=== PATIENT | male | born 1955 | race Caucasian/White ===

== ENCOUNTER 2016-10-30 23:58 | Inpatient (IN) | payer OTHER ==
[~2016-10-30] VITALS: Ht 175.3 cm; Wt 167.4 kg
[~2016-10-30 23:58] MED LIST: ALLOPURINOL100 MG PO; ALLOPURINOL300 MG PO; AMBIEN10 MG PO; ATARAX10 MG PO; BICITRA SOLUTI473 ML PO; CALCITRIOL0.25 MC1 PO; CALCITRIOL0.5 MCG PO; CALCIUM ACETAT667 MG PO; CARDIZEM CD,CA240 M1 PO; CARDIZEM CD240 MG PO; CARDURA8 MG PO; CELEXA20 MG PO; CELEXA40 MG PO; CITALOPRAM HBR20 MG PO; COUMADIN,JANTOV10 MG PO; COUMADIN,JANTOVE5 MG PO; COUMADIN5 MG PO; COUMADIN7.5 MG PO; COZAAR25 MG PO; CYTRA-2 ORAL S473 ML PO; Cardizem CD,Cartia X PO; Coumadin,Jantoven PO; Cozaar PO; DIGOX125 MCG PO; DIGOXIN125 MCG PO; DILACOR XR240 MG PO; DILAUDID4 MG PO; DILTIAZEM 24HR240 MG PO; DIOVAN80 MG PO; DOXAZOSIN MESYLA4 MG PO; DRISDOL50000 UNIT PO; DUONEB 2.5-0.5 M3 ML AEROSOL; ERGOCALCIF50000 UNIT PO; FERREX 28 TABL1 EACH PO; FUROSEMIDE40 MG PO; FUROSEMIDE80 MG PO; GABAPENTIN300 MG PO; GENTLE IRON 281 EACH PO; HEMATOGEN SOFT1 EACH PO; HUMULIN NP100 UNIT/1 SC; IRON GLYCINATE PO; KLOR-CON M1515 MEQ PO; Keflex PO; LANOXIN,DIGIT0.25 MG PO; LASIX40 MG PO; METHOCARBAMOL750 MG PO; MIRALAX17 GM PO; NOVOLIN N100 UNIT/1 SQ; NOVOLIN,HU100 UNITS/ SC; NOVOLIN,HU100 UNITS/ SQ; NovoLIN,Humulin 70/3 SC; PANTOPRAZOLE SO40 MG PO; POLYETHYLENE GL17 GM PO; PROCRIT10000 UNI1 IV; ROBAXIN750 MG PO; ROCALTROL0.25 MCG PO; Rocaltrol PO; SENNA8.6 MG PO; SENOKOT,SENN1 TABLET PO; SENSIPAR30 MG PO; SERTRALINE HCL100 MG PO; Senokot S,Pericolace PO; TYLENOL REGULA325 MG PO; Tylenol Regular Stre PO; VITAMIN D250000 UNIT PO; VITAMIN D50000 UNI1 PO; Vitamin D, Drisdol PO; WARFARIN SODIU2.5 MG PO; WARFARIN SODIUM5 MG PO; ZOLOFT50 M1 PO; ZOLPIDEM TARTRA10 MG PO; ZYLOPRIM150 MG PO; Zoloft PO; [UNRECOGNIZED DRUG - OTHER] PO
[2016-10-31 00:46] LABS: MCH 28.5 PG (29.0-34.0); MCHC 31.1 G/DL (30.0-36.0); MCV 91.6 FL (86-99); MEAN PLAT.VOLUME 9.3 uM^3 (9.0-12.4); PLATELET COUNT 223 K/uL (156-360); RBC DIS.WIDTH-CV 17.1 % (11.8-14.6); RBC DIS.WIDTH-SD 55.3 % (39-53); RED BLOOD COUNT 4.04 M/uL (4.00-5.50); WHITE BLOOD COUNT 15.5 K/uL (4.1-10.2)
[2016-10-31 00:47] LABS: EOSINOPHIL (%) 1.7 % (0-5); EOSINOPHIL COUNT 0.3 K/uL (0-0.3); IMMATURE GRANULOCYTE (%) 0.3 % (0.0-0.7); IMMATURE GRANULOCYTE COUNT 0.5 K/uL; LYMPHOCYTE COUNT 0.7 K/uL (1.0-2.8); MONOCYTE (%) 4.9 % (3-12); MONOCYTE COUNT 0.8 K/uL (0-0.8); NEUTROPHIL (%) 88.4 % (45-76); NEUTROPHIL COUNT 13.7 K/uL (1.8-6.4)
[2016-10-31 00:55] LABS: CHLORIDE 100 mEq/L (99-109); POTASSIUM 4.9 mEq/L (3.7-5.4); SODIUM 139 mEq/L (136-147)
[2016-10-31 00:58] LABS: GLUCOSE 104 mg/dL (70-99)
[2016-10-31 00:59] LABS: ANION GAP 14 MEQ/L (2-14)
[2016-10-31 01:00] LABS: TOTAL BILIRUBIN 0.8 mg/dL (0.0-1.0)
[2016-10-31 01:01] LABS: ALKALINE PHOSPHATASE 111 IU/L (3-129); GFR ESTIMATE (CALCULATED) 8 mL/min/
[2016-10-31 01:02] LABS: UREA NITROGEN (BUN) 83 mg/dL (9-23)
[2016-10-31 01:05] LABS: LIPASE 29 U/L (1.0-51.0)
[2016-10-31 01:08] LABS: TROP-I INTERPRETATION NEGATIVE; TROPONIN-I 0.02 ng/mL (0.0-0.30)
[2016-10-31 02:19] LABS: INTER. NORMALIZED RATIO 2.5; PROTHROMBIN TIME 26.1 (9.2-11.2); PTT 40.6 (25-32)
[2016-10-31 02:27] LABS: DIGOXIN 1.2 ng/mL (0.8-2.0)
[2016-10-31 05:59] VITALS: BP 96/42
[2016-10-31 06:11] VITALS: BP 96/42
[2016-10-31 07:25] VITALS: BP 94/54
[2016-10-31 07:35] LABS: METH RESISTANT S AUREUS PCR NEGATIVE (NEGATIVE); PROBE CHECK PASS; SPECIMEN PROCESSING CONTROL PASS
[2016-10-31 07:51] LABS: POINT-OF-CARE METER ID UU13113781; POINT-OF-CARE USER ID ENVKC36
[2016-10-31 14:23] LABS: POINT-OF-CARE METER ID UU13113781
[2016-10-31 15:30] VITALS: BP 102/50
[2016-10-31 16:34] LABS: POINT-OF-CARE USER ID ENVKC36
[2016-10-31 20:00] VITALS: BP 102/64
[2016-11-01 00:15] VITALS: BP 107/59
[2016-11-01 04:48] VITALS: BP 124/48
[2016-11-01 08:02] VITALS: BP 98/48
[2016-11-01 09:27] LABS: INTER. NORMALIZED RATIO 2.5; PROTHROMBIN TIME 26.7 (9.2-11.2)
[2016-11-01 09:29] LABS: ANION GAP 10 MEQ/L (2-14); CHLORIDE 103 MEQ/L (99-109); POTASSIUM 4.3 MEQ/L (3.7-5.4); SAMPLE HEMOLYSIS CHECK 0; SAMPLE ICTERIC CHECK 0; SAMPLE LIPEMIA CHECK 0; SODIUM 140 MEQ/L (136-147)
[2016-11-01 09:35] LABS: EOSINOPHIL (%) 5.1 % (0-5); EOSINOPHIL COUNT 0.3 K/uL (0-0.3); GFR ESTIMATE (CALCULATED) 12 mL/min/; GLUCOSE 150 mg/dL (70-99); IMMATURE GRANULOCYTE (%) 0.2 % (0.0-0.7); LYMPHOCYTE COUNT 0.7 K/uL (1.0-2.8); MCH 28.5 PG (29.0-34.0); MCV 91.8 FL (86-99); MONOCYTE (%) 7.8 % (3-12); MONOCYTE COUNT 0.5 K/uL (0-0.8); NEUTROPHIL COUNT 4.4 K/uL (1.8-6.4); RBC DIS.WIDTH-CV 17.4 % (11.8-14.6); RBC DIS.WIDTH-SD 58.7 % (39-53); UREA NITROGEN (BUN) 56 mg/dL (9-23)
[2016-11-01 09:36] LABS: RED BLOOD COUNT 3.16 M/uL (4.00-5.50); WHITE BLOOD COUNT 5.9 K/uL (4.1-10.2)
[2016-11-01 10:13] LABS: MEAN PLAT.VOLUME 9.8 uM^3 (9.0-12.4); PLAT.SUFFICIENCY DECREASED; USER ID TLW
[2016-11-01 10:18] LABS: PLATELET COUNT 135 K/uL (156-360)
[2016-11-01 16:15] LABS: POINT-OF-CARE METER ID UU13113698
[2016-11-01 17:39] VITALS: BP 108/51
[2016-11-01 19:30] VITALS: BP 118/55
[2016-11-01 23:15] VITALS: BP 111/56
[2016-11-02 03:10] VITALS: BP 99/51
[2016-11-02 07:12] LABS: INTER. NORMALIZED RATIO 2.2; PROTHROMBIN TIME 23.4 (9.2-11.2)
[2016-11-02 07:44] VITALS: BP 113/57
[2016-11-02 08:50] LABS: ANION GAP 10 MEQ/L (2-14); CHLORIDE 102 MEQ/L (99-109); POTASSIUM 4.5 MEQ/L (3.7-5.4); SAMPLE HEMOLYSIS CHECK 0; SAMPLE ICTERIC CHECK 0; SAMPLE LIPEMIA CHECK 0; SODIUM 139 MEQ/L (136-147)
[2016-11-02 08:51] LABS: GLUCOSE 33 mg/dL (70-99)
[2016-11-02 08:57] LABS: GFR ESTIMATE (CALCULATED) 14 mL/min/; UREA NITROGEN (BUN) 51 mg/dL (9-23)
[2016-11-02 09:02] LABS: GLUCOSE 96 mg/dL (70-99)
[2016-11-02 09:05] LABS: HEMATOCRIT 30.7 % (38.0-50.0); MCH 28.2 PG (29.0-34.0); MCHC 30.9 G/DL (30.0-36.0); MCV 91.1 FL (86-99); MEAN PLAT.VOLUME 9.6 uM^3 (9.0-12.4); PLATELET COUNT 164 K/uL (156-360); RBC DIS.WIDTH-CV 16.7 % (11.8-14.6); RBC DIS.WIDTH-SD 53.9 % (39-53); RED BLOOD COUNT 3.37 M/uL (4.00-5.50); WHITE BLOOD COUNT 6.9 K/uL (4.1-10.2)
[2016-11-02 09:08] LABS: BASOPHIL COUNT 0.1 K/uL (0-0.1); EOSINOPHIL (%) 7.3 % (0-5); EOSINOPHIL COUNT 0.5 K/uL (0-0.3); IMMATURE GRANULOCYTE (%) 0.1 % (0.0-0.7); IMMATURE GRANULOCYTE COUNT 0.1 K/uL; LYMPHOCYTE COUNT 0.9 K/uL (1.0-2.8); MONOCYTE COUNT 0.6 K/uL (0-0.8); NEUTROPHIL (%) 69.7 % (45-76); NEUTROPHIL COUNT 4.8 K/uL (1.8-6.4)
[2016-11-02 09:50] LABS: POINT-OF-CARE METER ID UU13113681
[2016-11-02 12:26] LABS: POINT-OF-CARE METER ID UU13113781
[2016-11-02 12:35] VITALS: BP 114/55
[2016-11-02 16:07] VITALS: BP 106/49
[2016-11-02 16:34] LABS: POINT-OF-CARE METER ID UU13113781
[2016-11-02 19:00] VITALS: BP 103/58
[2016-11-02 21:26] LABS: POINT-OF-CARE METER ID UU13113781
[2016-11-02 23:30] VITALS: BP 109/45
[2016-11-03 03:30] VITALS: BP 130/53
[2016-11-03 07:02] LABS: INTER. NORMALIZED RATIO 2.2; PROTHROMBIN TIME 23.1 (9.2-11.2)
[2016-11-03 08:03] LABS: POINT-OF-CARE METER ID UU14174216; POINT-OF-CARE USER ID ENVKC36
[2016-11-03] MEDS ORDERED: LEVAQUIN500 MG PO ×2 (09:06→09:20)
[2016-11-03 11:57] VITALS: BP 112/53
[2016-11-03 11:58] LABS: POINT-OF-CARE METER ID UU14174216; POINT-OF-CARE USER ID ENVKC36
== END 2016-11-03 16:18 | disposition home or self-care (01) | DRG 189 ==
LOC: EME 23:58 → 4EAST 10-31 04:49 → EDOF 10-31 04:49 → 4EAST 10-31 05:49
PROVIDERS: Emergency Medicine; Internal Medicine; Internal Medicine Nephrology
PROC: 5A1D60Z (ICD-10-PCS; principal; 2016-10-31)
DX: J81.0 Acute pulmonary edema (principal); N18.6 End stage renal disease; J44.1 Chronic obstructive pulmonary disease with (acute) exacerbation; I12.0 Hypertensive chronic kidney disease with stage 5 chronic kidney disease or end stage renal disease; L03.116 Cellulitis of left lower limb; L03.115 Cellulitis of right lower limb; Z68.43 Body mass index [BMI] 50.0-59.9, adult; L97.911 Non-pressure chronic ulcer of unspecified part of right lower leg limited to breakdown of skin; N25.81 Secondary hyperparathyroidism of renal origin; M19.90 Unspecified osteoarthritis, unspecified site; I48.2 Chronic atrial fibrillation; E66.01 Morbid (severe) obesity due to excess calories; I87.2 Venous insufficiency (chronic) (peripheral); D63.1 Anemia in chronic kidney disease; G47.33 Obstructive sleep apnea (adult) (pediatric); E11.649 Type 2 diabetes mellitus with hypoglycemia without coma; E11.21 Type 2 diabetes mellitus with diabetic nephropathy; I87.8 Other specified disorders of veins; M25.561 Pain in right knee; W19.XXXA Unspecified fall, initial encounter; M54.5 Low back pain; E11.22 Type 2 diabetes mellitus with diabetic chronic kidney disease; F32.9 Major depressive disorder, single episode, unspecified; G89.29 Other chronic pain; I50.9 Heart failure, unspecified; Z79.4 Long term (current) use of insulin; Z87.891 Personal history of nicotine dependence; Z86.73 Personal history of transient ischemic attack (TIA), and cerebral infarction without residual deficits; Z88.6 Allergy status to analgesic agent; Z88.0 Allergy status to penicillin; Z88.8 Allergy status to other drugs, medicaments and biological substances; Z91.15 Patient's noncompliance with renal dialysis; Y99.9 Unspecified external cause status
CPT/HCPCS: 71010; 71020; 72131; 73564; 80053; 80069; 80162; 81003; 82948; 83605; 83690; 83880; 84484; 84999; 85025; 85610; 85730; 87040; 87641; 93005; 94640; 94640 76; 94660; 94760; 94799; 99202; 99281; 99285; J1270; J1644; J1815; J1940; J1956

== ENCOUNTER 2017-01-02 21:52 | Emergency (ER) | payer OTHER ==
[~2017-01-02] VITALS: Ht 175.3 cm; Wt 169.7 kg
[~2017-01-02 21:52] MED LIST changes: +LEVAQUIN500 MG PO
[2017-01-02 23:58] LABS: BASOPHIL COUNT 0.1 K/uL (0-0.1); EOSINOPHIL COUNT 0.2 K/uL (0-0.3); HEMATOCRIT 33.1 % (38.0-50.0); IMMATURE GRANULOCYTE (%) 0.5 % (0.0-0.7); IMMATURE GRANULOCYTE COUNT 0.1 K/uL; INSTRUMENT ABS NEUTROPHIL CT 9.1 K/uL; LYMPHOCYTE COUNT 0.7 K/uL (1.0-2.8); MCH 29.8 PG (29.0-34.0); MEAN PLAT.VOLUME 9.4 uM^3 (9.0-12.4); MONOCYTE (%) 4.8 % (3-12); MONOCYTE COUNT 0.5 K/uL (0-0.8); NEUTROPHIL (%) 85.7 % (45-76); NEUTROPHIL COUNT 9.1 K/uL (1.8-6.4); PLATELET COUNT 198 K/uL (156-360); RBC DIS.WIDTH-SD 57.4 % (39-53); RED BLOOD COUNT 3.56 M/uL (4.00-5.50); WHITE BLOOD COUNT 10.6 K/uL (4.1-10.2)
[2017-01-03 00:11] LABS: CHLORIDE 99 mEq/L (99-109); SODIUM 140 mEq/L (136-147)
[2017-01-03 00:13] LABS: GLUCOSE 91 mg/dL (70-99)
[2017-01-03 00:14] LABS: ANION GAP 15 MEQ/L (2-14)
[2017-01-03 00:17] LABS: GFR ESTIMATE (CALCULATED) 8 mL/min/
[2017-01-03 00:18] LABS: UREA NITROGEN (BUN) 73 mg/dL (9-23)
[2017-01-03 01:32] LABS: ADD MIUA? YES; BILIRUBIN NEGATIVE; BLOOD SMALL; COLOR YELLOW ((YELLOW)); GLUCOSE (STRIP) NEGATIVE; KETONES NEGATIVE; LEUKOCYTES LARGE; NITRITE NEGATIVE; PROTEIN (STRIP) 100; SPECIFIC GRAVITY 1.011 (1.000-1.030); UROBILINOGEN 0.2 MG/DL (0.2-1.0)
[2017-01-03 01:43] LABS: BACTERIA 2+ /HPF; EPITHELIAL CELLS RARE /HPF; HYALINE CASTS 0-5 /LPF; MUCUS TRACE /LPF; RED BLOOD CELLS 15-20 /HPF (0-5); UCUL ADDED? YES; WHITE BLOOD CELLS TNTC /HPF (0-5)
[2017-01-03] MEDS ORDERED: KEFLEX500 MG PO (01:50)
[2017-01-03 02:00] VITALS: BP 113/71
== END 2017-01-03 02:01 | disposition home or self-care (01) ==
LOC: EME → EDBD 21:52 → EME 01-03 02:01
PROVIDERS: Emergency Medicine
DX: N39.0 Urinary tract infection, site not specified (principal); N10 Acute pyelonephritis; J45.909 Unspecified asthma, uncomplicated; I11.0 Hypertensive heart disease with heart failure; I50.9 Heart failure, unspecified; Z87.891 Personal history of nicotine dependence; G89.29 Other chronic pain; E11.9 Type 2 diabetes mellitus without complications; J44.9 Chronic obstructive pulmonary disease, unspecified; G47.30 Sleep apnea, unspecified; Z86.73 Personal history of transient ischemic attack (TIA), and cerebral infarction without residual deficits; Z79.01 Long term (current) use of anticoagulants; Z79.4 Long term (current) use of insulin
CPT/HCPCS: 74176; 80048; 81003; 85025; 87077; 87086; 87186; 99281; 99284

== ENCOUNTER 2017-01-25 09:50 | Inpatient (IN) | payer OTHER ==
[~2017-01-25] VITALS: Ht 175.3 cm; Wt 165.9 kg
[~2017-01-25 09:50] MED LIST changes: +KEFLEX500 MG PO
[2017-01-25 10:30] LABS: BASOPHIL COUNT 0.1 K/uL (0-0.1); EOSINOPHIL (%) 1.5 % (0-5); EOSINOPHIL COUNT 0.2 K/uL (0-0.3); HEMATOCRIT 35.6 % (38.0-50.0); IMMATURE GRANULOCYTE (%) 0.7 % (0.0-0.7); IMMATURE GRANULOCYTE COUNT 0.1 K/uL; INSTRUMENT ABS NEUTROPHIL CT 8.3 K/uL; LYMPHOCYTE COUNT 0.7 K/uL (1.0-2.8); MCH 29.1 PG (29.0-34.0); MCHC 30.3 G/DL (30.0-36.0); MEAN PLAT.VOLUME 8.9 uM^3 (9.0-12.4); MONOCYTE (%) 5.9 % (3-12); MONOCYTE COUNT 0.6 K/uL (0-0.8); NEUTROPHIL (%) 83.7 % (45-76); NEUTROPHIL COUNT 8.3 K/uL (1.8-6.4); PLATELET COUNT 243 K/uL (156-360); RBC DIS.WIDTH-CV 17.1 % (11.8-14.6); RED BLOOD COUNT 3.71 M/uL (4.00-5.50)
[2017-01-25 10:51] LABS: TROP-I INTERPRETATION NEGATIVE; TROPONIN-I 0.03 ng/mL (0.0-0.30)
[2017-01-25 10:52] LABS: CHLORIDE 101 mEq/L (99-109); POTASSIUM 5.8 mEq/L (3.7-5.4)
[2017-01-25 10:53] LABS: SODIUM 141 mEq/L (136-147)
[2017-01-25 10:54] LABS: GLUCOSE 99 mg/dL (70-99); PROTHROMBIN TIME 20.6 (9.2-11.2)
[2017-01-25 10:56] LABS: ANION GAP 15 MEQ/L (2-14)
[2017-01-25 10:58] LABS: GFR ESTIMATE (CALCULATED) 7 mL/min/
[2017-01-25 10:59] LABS: UREA NITROGEN (BUN) 64 mg/dL (9-23)
[2017-01-25 11:19] LABS: DIGOXIN 1.9 ng/mL (0.8-2.0)
[2017-01-25] MEDS ORDERED: COUMADIN5 MG PO (13:00)
[2017-01-25] MEDS ORDERED: ZYLOPRIM300 MG PO (13:11)
[2017-01-25 23:24] VITALS: BP 127/76
[2017-01-26 02:36] LABS: METH RESISTANT S AUREUS PCR NEGATIVE (NEGATIVE)
[2017-01-26 02:49] LABS: PROBE CHECK PASS; SPECIMEN PROCESSING CONTROL PASS
[2017-01-26 04:00] VITALS: BP 104/56
[2017-01-26 05:56] LABS: ALKALINE PHOSPHATASE 88 IU/L (3-129); ANION GAP 9 MEQ/L (2-14); CHLORIDE 100 MEQ/L (99-109); GLUCOSE 98 mg/dL (70-99); SAMPLE HEMOLYSIS CHECK 0; SAMPLE ICTERIC CHECK 0; SAMPLE LIPEMIA CHECK 0; SODIUM 140 MEQ/L (136-147); TOTAL BILIRUBIN 0.8 MG/DL (0.0-1.0); UREA NITROGEN (BUN) 36 mg/dL (9-23)
[2017-01-26 06:00] LABS: GFR ESTIMATE (CALCULATED) 13 mL/min/; POTASSIUM 4.4 MEQ/L (3.7-5.4)
[2017-01-26 06:21] LABS: INTER. NORMALIZED RATIO 2.4; PROTHROMBIN TIME 24.8 (9.2-11.2)
[2017-01-26 06:26] LABS: BASOPHIL COUNT 0.1 K/uL (0-0.1); EOSINOPHIL (%) 2.8 % (0-5); EOSINOPHIL COUNT 0.2 K/uL (0-0.3); HEMATOCRIT 29.1 % (38.0-50.0); IMMATURE GRANULOCYTE (%) 0.6 % (0.0-0.7); INSTRUMENT ABS NEUTROPHIL CT 5.2 K/uL; LYMPHOCYTE COUNT 0.7 K/uL (1.0-2.8); MCH 29.3 PG (29.0-34.0); MCHC 30.6 G/DL (30.0-36.0); MCV 95.7 FL (86-99); MEAN PLAT.VOLUME 9.1 uM^3 (9.0-12.4); MONOCYTE (%) 8.2 % (3-12); MONOCYTE COUNT 0.6 K/uL (0-0.8); NEUTROPHIL (%) 77.5 % (45-76); NEUTROPHIL COUNT 5.2 K/uL (1.8-6.4); PLATELET COUNT 175 K/uL (156-360); RBC DIS.WIDTH-CV 16.9 % (11.8-14.6); RBC DIS.WIDTH-SD 59.2 % (39-53); RED BLOOD COUNT 3.04 M/uL (4.00-5.50)
[2017-01-26 06:35] LABS: WHITE BLOOD COUNT 6.7 K/uL (4.1-10.2)
[2017-01-26 08:04] VITALS: BP 99/55
[2017-01-26 10:27] LABS: AHBS INDEX 3.43; HBSG INDEX 0.23; HEPATITIS B SURFACE ANTIBODY Nonreactive
[2017-01-26 16:25] VITALS: BP 98/49
[2017-01-27 00:06] VITALS: BP 94/57
[2017-01-27 02:50] VITALS: BP 104/51
[2017-01-27 07:08] LABS: INTER. NORMALIZED RATIO 2.4; PROTHROMBIN TIME 25.4 (9.2-11.2)
[2017-01-27 08:11] VITALS: BP 125/60
[2017-01-27 11:14] LABS: POINT-OF-CARE METER ID UU14188577
[2017-01-27 11:35] VITALS: BP 111/55
[2017-01-27 13:05] LABS: BASOPHIL COUNT 0.1 K/uL (0-0.1); EOSINOPHIL (%) 3.4 % (0-5); EOSINOPHIL COUNT 0.2 K/uL (0-0.3); HEMATOCRIT 29.1 % (38.0-50.0); IMMATURE GRANULOCYTE (%) 0.7 % (0.0-0.7); INSTRUMENT ABS NEUTROPHIL CT 4.1 K/uL; LYMPHOCYTE COUNT 0.7 K/uL (1.0-2.8); MCH 29.2 PG (29.0-34.0); MCHC 30.6 G/DL (30.0-36.0); MCV 95.4 FL (86-99); MEAN PLAT.VOLUME 9.1 uM^3 (9.0-12.4); MONOCYTE COUNT 0.5 K/uL (0-0.8); NEUTROPHIL (%) 73.3 % (45-76); NEUTROPHIL COUNT 4.1 K/uL (1.8-6.4); PLATELET COUNT 137 K/uL (156-360); RBC DIS.WIDTH-CV 16.6 % (11.8-14.6); RBC DIS.WIDTH-SD 58.3 % (39-53); RED BLOOD COUNT 3.05 M/uL (4.00-5.50); WHITE BLOOD COUNT 5.6 K/uL (4.1-10.2)
[2017-01-27 13:17] LABS: ANION GAP 10 MEQ/L (2-14); CHLORIDE 99 MEQ/L (99-109); POTASSIUM 4.5 MEQ/L (3.7-5.4); SAMPLE HEMOLYSIS CHECK 0; SAMPLE ICTERIC CHECK 0; SAMPLE LIPEMIA CHECK 0; SODIUM 138 MEQ/L (136-147)
[2017-01-27 13:26] LABS: GFR ESTIMATE (CALCULATED) 14 mL/min/; UREA NITROGEN (BUN) 30 mg/dL (9-23)
[2017-01-27 13:27] LABS: GLUCOSE 157 mg/dL (70-99)
[2017-01-27 15:06] VITALS: BP 108/57
[2017-01-27 17:14] LABS: POINT-OF-CARE METER ID UU14188577
[2017-01-27 20:00] VITALS: BP 120/57
[2017-01-28 00:08] VITALS: BP 119/56
[2017-01-28 03:54] VITALS: BP 80/54
[2017-01-28 05:40] LABS: INTER. NORMALIZED RATIO 2.2; PROTHROMBIN TIME 22.5 (9.2-11.2)
[2017-01-28 06:41] LABS: POINT-OF-CARE METER ID UU14188577
[2017-01-28 08:00] VITALS: BP 120/53
[2017-01-28 12:00] VITALS: BP 111/80
[2017-01-28 12:09] LABS: POINT-OF-CARE METER ID UU14188577
[2017-01-28 16:00] VITALS: BP 105/50
[2017-01-28 16:57] LABS: POINT-OF-CARE METER ID UU14149397
[2017-01-28 20:04] VITALS: BP 131/67
[2017-01-28 21:19] LABS: POINT-OF-CARE METER ID UU14188577
[2017-01-29 00:05] VITALS: BP 119/55
[2017-01-29 04:02] VITALS: BP 115/57
[2017-01-29 06:27] LABS: INTER. NORMALIZED RATIO 2.1
[2017-01-29 06:30] LABS: POINT-OF-CARE METER ID UU14188577
[2017-01-29 08:38] VITALS: BP 122/56
[2017-01-29 11:28] LABS: POINT-OF-CARE METER ID UU14149397
[2017-01-29 11:45] VITALS: BP 106/55
[2017-01-29] MEDS ORDERED: FUROSEMIDE80 MG PO (14:57)
[2017-01-29] MEDS ORDERED: SPIRIVA RESPIMAT4 GM IH (14:59)
== END 2017-01-29 15:30 | disposition home or self-care (01) | DRG 682 ==
LOC: EME → EDBD 09:50 → EME 09:50 → 3EAST 17:05 → EDOF 17:05 → 3EAST 22:02
PROVIDERS: Emergency Medicine; Internal Medicine; Internal Medicine Nephrology
PROC: 5A1D60Z (ICD-10-PCS; principal; 2017-01-25)
PROC: 5A09357 Assistance with Respiratory Ventilation, Less than 24 Consecutive Hours, Continuous Positive Airway Pressure (ICD-10-PCS; 2017-01-27)
DX: I13.11 Hypertensive heart and chronic kidney disease without heart failure, with stage 5 chronic kidney disease, or end stage renal disease (principal); I50.33 Acute on chronic diastolic (congestive) heart failure; N17.9 Acute kidney failure, unspecified; E11.21 Type 2 diabetes mellitus with diabetic nephropathy; E11.22 Type 2 diabetes mellitus with diabetic chronic kidney disease; N18.6 End stage renal disease; J96.21 Acute and chronic respiratory failure with hypoxia; E87.5 Hyperkalemia; I48.2 Chronic atrial fibrillation; J44.9 Chronic obstructive pulmonary disease, unspecified; G47.33 Obstructive sleep apnea (adult) (pediatric); G89.4 Chronic pain syndrome; E55.9 Vitamin D deficiency, unspecified; I42.9 Cardiomyopathy, unspecified; D63.1 Anemia in chronic kidney disease; N25.81 Secondary hyperparathyroidism of renal origin; E66.2 Morbid (severe) obesity with alveolar hypoventilation; E78.5 Hyperlipidemia, unspecified; I87.2 Venous insufficiency (chronic) (peripheral); M10.9 Gout, unspecified; F32.9 Major depressive disorder, single episode, unspecified; I44.7 Left bundle-branch block, unspecified; R19.7 Diarrhea, unspecified; I47.2 Ventricular tachycardia; Z91.19 Patient's noncompliance with other medical treatment and regimen; Z68.43 Body mass index [BMI] 50.0-59.9, adult; Z79.4 Long term (current) use of insulin; Z87.891 Personal history of nicotine dependence; Z88.0 Allergy status to penicillin; Z86.73 Personal history of transient ischemic attack (TIA), and cerebral infarction without residual deficits; Z99.2 Dependence on renal dialysis
CPT/HCPCS: 71010; 71020; 80048; 80053; 80069; 80162; 82948; 84484; 85025; 85610; 86706; 87340; 87641; 93005; 94640; 94640 76; 94660; 94760; 94799; 99202; 99281; 99284; J0881; J1644; J1756; J1815; J1940; J7050